=== PATIENT | male | born 1945 | race Caucasian/White ===

== ENCOUNTER 2019-02-01 08:29 | Emergency (ER) | payer MEDICARE ==
[~2019-02-01] VITALS: Ht 167.6 cm; Wt 68.0 kg
[~2019-02-01 08:29] MED LIST: ALPR0.5T72 PO; AMLO5TAB2 PO; ASPI-892 PO; FLUO20CA25 PO; LOVA20TA2 PO; NORT50CA PO; lovaza PO
[2019-02-01 09:22] LABS: BASOPHILS # (AUTO) 0.1 10^3/uL (0.0-0.1); BASOPHILS % (AUTO) 1 % (0-10); EOSINOPHILS # (AUTO) 0.2 10^3/uL (0.0-0.3); EOSINOPHILS % (AUTO) 2 % (0-10); HEMATOCRIT 47 % (40-54); HEMOGLOBIN 16.4 G/DL (13.3-17.7); LYMPHOCYTES # (AUTO) 1.6 X 10^3 (1.0-4.0); LYMPHOCYTES % (AUTO) 20 % (12-44); MEAN CORPUSCULAR HEMOGLOBIN 32 PG (25-34); MEAN CORPUSCULAR HGB CONC 35 G/DL (32-36); MEAN CORPUSCULAR VOLUME 93 FL (80-99); MEAN PLATELET VOLUME 10.6 FL (7.4-10.4); MONOCYTES # (AUTO) 0.9 X 10^3 (0.0-1.0); MONOCYTES % (AUTO) 11 % (0-12); NEUTROPHILS # (AUTO) 5.3 X 10^3 (1.8-7.8); NEUTROPHILS % (AUTO) 66 % (42-75); PLATELET COUNT 184 10^3/uL (130-400); RED CELL DISTRIBUTION WIDTH 12.6 % (10.0-14.5); WHITE BLOOD COUNT 8.1 10^3/uL (4.3-11.0)
[2019-02-01 09:32] LABS: INR 0.9 (0.8-1.4); PROTHROMBIN TIME PATIENT 12.6 SEC (12.2-14.7)
[2019-02-01 09:38] LABS: ALANINE AMINOTRANSFERASE 48 U/L (0-55); ALBUMIN 4.1 GM/DL (3.2-4.5); ALKALINE PHOSPHATASE 63 U/L (40-136); BILIRUBIN,TOTAL 1.3 MG/DL (0.1-1.0); BUN/CREATININE RATIO 19; CARBON DIOXIDE 20 MMOL/L (21-32); CHLORIDE 101 MMOL/L (98-107); CREATINE KINASE 29 U/L (30-200); CREATININE SERUM 0.91 MG/DL (0.60-1.30); GFR ESTIMATED > 60; GLUCOSE 207 MG/DL (70-105); MAGNESIUM 2.3 MG/DL (1.8-2.4); POTASSIUM 4.3 MMOL/L (3.6-5.0); SODIUM 133 MMOL/L (135-145); TOTAL PROTEIN 7.1 GM/DL (6.4-8.2)
[2019-02-01 09:40] LABS: ACETAMINOPHEN < 10 UG/ML (10-30)
[2019-02-01 09:45] LABS: CREATINE KINASE MB 0.6 NG/ML (<6.6)
[2019-02-01] MEDS ORDERED: NS IV 1000 ML 1,000 ML IV ONE (09:52)
--- NOTE | 2019-02-01 09:55 | Diagnostic Imaging Report ---
PROCEDURE: CT head wo r/o stroke. TECHNIQUE: Multiple contiguous axial images were obtained through the brain without the use of intravenous contrast. Auto Exposure Controls were utilized during the CT exam to meet ALARA standards for radiation dose reduction. INDICATION: Right arm weakness. Comparison is made with prior examination from 10/15/12. FINDINGS: There is prominence of the ventricles and sulci. There is some chronic microvascular ischemic disease. There is an unchanged area of encephalomalacia in the left temporal lobe. There is also an unchanged lacunar infarct in the right basal ganglia. There is a new area of decreased attenuation in the anterior left parietal lobe suspect for developing CVA. There is no hydrocephalus. There is no midline shift. There is no intracranial mass, hemorrhage or extra-axial fluid collection. Calvarium is intact. Sinuses and mastoid air cells are clear. IMPRESSION: New area of decreased attenuation in the anterior aspect of the left parietal lobe suspect for subacute CVA. Recommend clinical correlation and if warranted followup with MRI. Atrophy and some chronic microvascular ischemic disease with unchanged encephalomalacia in the left temporal lobe as well as unchanged lacunar infarct in the right basal ganglia Findings conveyed directly to Dr. Brannon in the ER at 9:40 AM Dictated by: Dictated on workstation # [id number]
--- NOTE | 2019-02-01 10:01 | Diagnostic Imaging Report ---
INDICATION: Weakness. COMPARISON: None available. TECHNIQUE: Single frontal radiograph of the chest dated 02/01/2019. FINDINGS: The cardiac silhouette is within normal limits in size. No significant pulmonary vascular congestion. The lungs are clear. No pleural effusion. No pneumothorax. Scattered osseous degenerative changes without acute osseous abnormality. IMPRESSION: No acute cardiopulmonary abnormality. Dictated by: Dictated on workstation # [id number]
--- NOTE | 2019-02-01 10:04 | Diagnostic Imaging Report ---
INDICATION: Arm weakness. FINDINGS: Alignment is normal. There are degenerative changes. There is soft tissue calcification in the region of the cuff suspect for calcific tendinitis. There is no fracture or dislocation. Right lung is clear. IMPRESSION: Degenerative changes of the shoulder without acute fracture or dislocation. Soft tissue calcification in the region of the cuff suspect for calcific tendinitis. Dictated by: Dictated on workstation # [id number]
--- NOTE | 2019-02-01 10:05 | Diagnostic Imaging Report ---
INDICATION: Arm weakness COMPARISON: Imaging of the right shoulder from same date. FINDINGS: Mild degenerative changes of the acromioclavicular joint. No acute fracture or dislocation. No destructive osseous process. Curvilinear calcifications are identified superior to the humeral head. Subacromial space is well maintained. Well-corticated calcific density is identified adjacent to the lateral epicondyle. IMPRESSION: No acute fracture or dislocation. Calcific density superior to the humeral head which may relate to calcific tendinitis of the rotator cuff. 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 Mild scattered degenerative changes. Dictated by: Dictated on workstation # [id number]
--- NOTE | 2019-02-01 11:11 | Diagnostic Imaging Report ---
CLINICAL INDICATION: Patient with right arm weakness and abnormal CT scan. EXAMS: 1: MRI of the brain performed without and with 9 cc of Gadavist IV gadolinium. Sequences include axial gradient echo, axial T2, axial FLAIR, DWI, ADC map, axial T1, axial T1 post IV contrast, coronal T1 fat-sat post IV contrast, sagittal T1 post IV contrast. 2: MRA of the [place] performed without IV contrast using 3D [id number]. Multiple 3-D rotating MIP images were created. COMPARISON: None. MRI BRAIN FINDINGS: There is no evidence of acute cerebral infarct, intracranial hemorrhage, or gross mass effect. There is normal rothman-white matter distinction. There is an area of chronic cerebral infarct involving the posterolateral left frontal lobe/parietal lobe region. There is a small to moderate-sized chronic infarct involving the left temporal lobe with gliosis and encephalomalacia. There is focal, patchy, and confluent areas of high T2 signal white matter changes seen throughout both cerebral hemispheres, periventricular regions, and ingrid. These findings are suspected to represent background chronic small vessel ischemic disease and leukoaraiosis. Parenchymal volume appears appropriate for patient's age. There is no significant midline shift or herniation. The [place] vascular structures show no gross abnormality as visualized. Partially empty sella turcica is seen. There is no evidence of hydrocephalus. The basal cisterns are unremarkable. The skull, extracranial soft tissue, and orbits are unremarkable. There is mild mucosal thickening involving both maxillary sinuses, frontal sinus, and ethmoid sinus. MRA COW FINDINGS: MRA of the [place] shows no significant stenosis, dissection, vascular malformation, or aneurysm seen. The visualized portions of both ICAs are patent. The anterior cerebral arteries and their branches, middle cerebral arteries and their branches are unremarkable. The bilateral metal reed tuner, basilar artery, and vertebral arteries are unremarkable. Dominant left vertebral artery is seen. There is a very small caliber post PICA right vertebral artery. IMPRESSION: 1: There is no evidence of acute cerebral infarction, intracranial hemorrhage, hydrocephalus, or brain herniation. 2: There are chronic cerebral infarcts involving the posterior left frontal/parietal lobe region. 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 4: Unremarkable MRA of the [place] with no evidence of significant stenosis, high-flow vascular malformation, or aneurysm. Dictated by: Dictated on workstation # [id number]
--- NOTE | 2019-02-01 11:27 | Diagnostic Imaging Report ---
CLINICAL INDICATION: Patient with right arm weakness and abnormal CT scan. EXAMS: 1: MRI of the brain performed without and with 9 cc of Gadavist IV gadolinium. Sequences include axial gradient echo, axial T2, axial FLAIR, DWI, ADC map, axial T1, axial T1 post IV contrast, coronal T1 fat-sat post IV contrast, sagittal T1 post IV contrast. 2: MRA of the [place] performed without IV contrast using 3D [id number]. Multiple 3-D rotating MIP images were created. COMPARISON: None. MRI BRAIN FINDINGS: There is no evidence of acute cerebral infarct, intracranial hemorrhage, or gross mass effect. There is normal rothman-white matter distinction. There is an area of chronic cerebral infarct involving the posterolateral left frontal lobe/parietal lobe region. There is a small to moderate-sized chronic infarct involving the left temporal lobe with gliosis and encephalomalacia. There is focal, patchy, and confluent areas of high T2 signal white matter changes seen throughout both cerebral hemispheres, periventricular regions, and ingrid. These findings are suspected to represent background chronic small vessel ischemic disease and leukoaraiosis. Parenchymal volume appears appropriate for patient's age. There is no significant midline shift or herniation. The [place] vascular structures show no gross abnormality as visualized. Partially empty sella turcica is seen. There is no evidence of hydrocephalus. The basal cisterns are unremarkable. The skull, extracranial soft tissue, and orbits are unremarkable. There is mild mucosal thickening involving both maxillary sinuses, frontal sinus, and ethmoid sinus. MRA COW FINDINGS: MRA of the [place] shows no significant stenosis, dissection, vascular malformation, or aneurysm seen. The visualized portions of both ICAs are patent. The anterior cerebral arteries and their branches, middle cerebral arteries and their branches are unremarkable. The bilateral personalized living manager, basilar artery, and vertebral arteries are unremarkable. Dominant left vertebral artery is seen. There is a very small caliber post PICA right vertebral artery. IMPRESSION: 1: There is no evidence of acute cerebral infarction, intracranial hemorrhage, hydrocephalus, or brain herniation. 2: There are chronic cerebral infarcts involving the posterior left frontal/parietal lobe region. 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 4: Unremarkable MRA of the [place] with no evidence of significant stenosis, high-flow vascular malformation, or aneurysm. Dictated by: Dictated on workstation # [id number]
--- NOTE | 2019-02-01 11:42 | ED Neurological Problem ---
General Chief Complaint: Neuro-Stroke Like Symptoms Stated Complaint: ARM WEAKNESS Allergies and Home Medications Allergies Coded Allergies: No Known Drug Allergies (Unverified , 10/14/12) Home Medications Alprazolam 0.5 Mg Tab.rapdis, 0.5 MG PO BID PRN, (Reported) Amlodipine Besylate 5 Mg Tablet, 5 MG PO DAILY, (Reported) Aspirin 81 Mg Tabec, 81 MG PO DAILY, (Reported) Fluoxetine Hcl 20 Mg Capsule, 20 MG PO DAILY, (Reported) Nortriptyline Hcl 50 Mg Capsule, 50 MG PO HS, (Reported) [lovaza] , 1 GM PO DAILY, (Reported) Past Kgwqxdq-Zkytna-Fdhpda Hx Immunizations Up To Date Tetanus Booster (TDap): Unknown PED Vaccines UTD: No Date of Pneumonia Vaccine: Jul 05, 2011 Date of Influenza Vaccine: Aug 05, 2012 Past Medical History Reproductive Disorders: No Depression Physical Exam Vital Signs Capillary Refill : Height, Weight, BMI Height: '" Weight: lbs. oz. kg; BMI Method:Stated Progress/Results/Core Measures Results/Orders Lab Results Laboratory Tests Test 02/01/19 00:00 02/01/19 09:10 02/01/19 11:28 Range/Units White Blood Count 8.1 4.3-11.0 10^3/uL Red Blood Count 5.08 4.35-5.85 10^6/uL Hemoglobin 16.4 13.3-17.7 G/DL Hematocrit 47 40-54 % Mean Corpuscular Volume 93 80-99 FL Mean Corpuscular Hemoglobin 32 25-34 PG Mean Corpuscular Hemoglobin Concent 35 32-36 G/DL Red Cell Distribution Width 12.6 10.0-14.5 % Platelet Count 184 130-400 10^3/uL Mean Platelet Volume 10.6 H 7.4-10.4 FL Neutrophils (%) (Auto) 66 42-75 % Lymphocytes (%) (Auto) 20 12-44 % Monocytes (%) (Auto) 11 0-12 % Eosinophils (%) (Auto) 2 0-10 % Basophils (%) (Auto) 1 0-10 % Neutrophils # (Auto) 5.3 1.8-7.8 X 10^3 Lymphocytes # (Auto) 1.6 1.0-4.0 X 10^3 Monocytes # (Auto) 0.9 0.0-1.0 X 10^3 Eosinophils # (Auto) 0.2 0.0-0.3 10^3/uL Basophils # (Auto) 0.1 0.0-0.1 10^3/uL Prothrombin Time 12.6 12.2-14.7 SEC INR Comment 0.9 0.8-1.4 Activated Partial Thromboplast Time 30 24-35 SEC Sodium Level 133 L 135-145 MMOL/L Potassium Level 4.3 3.6-5.0 MMOL/L Chloride Level 101 98-107 MMOL/L Carbon Dioxide Level 20 L 21-32 MMOL/L Anion Gap 12 5-14 MMOL/L Blood Urea Nitrogen 17 7-18 MG/DL Creatinine 0.91 0.60-1.30 MG/DL Estimat Glomerular Filtration Rate > 60 BUN/Creatinine Ratio 19 Glucose Level 207 H 70-105 MG/DL Calcium Level 10.0 8.5-10.1 MG/DL Corrected Calcium 9.9 8.5-10.1 MG/DL Magnesium Level 2.3 1.8-2.4 MG/DL Total Bilirubin 1.3 H 0.1-1.0 MG/DL Aspartate Amino Transf (AST/SGOT) 33 5-34 U/L Alanine Aminotransferase (ALT/SGPT) 48 0-55 U/L Alkaline Phosphatase 63 40-136 U/L Total Creatine Kinase 29 L 30-200 U/L Creatine Kinase MB 0.6 <6.6 NG/ML Troponin I < 0.028 <0.028 NG/ML Total Protein 7.1 6.4-8.2 GM/DL Albumin 4.1 3.2-4.5 GM/DL Acetaminophen Level < 10 L 10-30 UG/ML Serum Alcohol < 10 <10 MG/DL My Orders Orders - MYRTLE WANG DO Ekg Tracing (02/01/19 09:15) Accucheck Stat ONCE (02/01/19 09:16) Ed Iv/Invasive Line Start (02/01/19 09:16) Monitor-Rhythm Ecg Trace Only (02/01/19 09:16) Ct Head Wo-R/O Stroke (02/01/19 09:16) Chest 1 View, Ap/Pa Only (02/01/19 09:16) Shoulder, Right, 3 Views (02/01/19 09:16) Humerus, Right, 2 Views (02/01/19 09:16) Acetaminophen (02/01/19 09:16) Alcohol (02/01/19 09:16) Cbc With Automated Diff (02/01/19 09:16) Comprehensive Metabolic Panel (02/01/19 09:16) Creatine Kinase (02/01/19 09:16) Creatine Kinase Mb (02/01/19 09:16) Magnesium (02/01/19 09:16) Protime With Inr (02/01/19 09:16) Partial Thromboplastin Time (02/01/19 09:16) Troponin I (02/01/19 09:16) Ua Culture If Indicated (02/01/19 09:16) Drug Screen Stat (Urine) (02/01/19 09:19) Ed Iv/Invasive Line Start (02/01/19 09:52) Ns Iv 1000 Ml (Sodium Chloride 0.9%) (02/01/19 09:52) Mra Head W/O Contrast (02/01/19 09:56) Mri Brain W/O Contrast (02/01/19 ) Medications Given in ED Current Medications Medications Dose Ordered Sig/Anita Route Start Time Stop Time Status Last Admin Dose Admin Sodium Chloride 1,000 ml @ 0 mls/hr Q0M ONCE IV 02/01/19 09:52 02/01/19 10:03 DC 02/01/19 10:13 1,000 MLS/HR Departure Impression Primary Impression: TIA (transient ischemic attack) Additional Impressions: Diabetes HTN (hypertension) Disposition: 01 HOME, SELF-CARE Condition: Stable Departure-Patient Inst. Referrals: NO,LOCAL PHYSICIAN (PCP/Family) Primary Care Physician Patient Instructions: Transient Ischemic Attack (DC), High Blood Pressure (DC) , DASH Diet, Diabetes Type 2 (DC), Blood Glucose Monitoring, Diabetes Diet Add. Discharge Instructions: TAKE YOUR MEDICATIONS PRESCRIBED NO ALCOHOL NO DRIVING UNTIL YOU ARE CLEARED BY YOUR DR FOLLOW UP WITH DR. MURPHY OR DR MALONE THIS WEEK FOR FURTHER CARE All discharge instructions reviewed with patient and/or family. Voiced understanding. MYRTLE WANG DO Feb 01, 2019 11:42
[2019-02-01 11:43] LABS: BILIRUBIN,URINE NEGATIVE (NEGATIVE); CLARITY,URINE SLIGHTLY CLOUDY; COLOR,URINE YELLOW; GLUCOSE, URINE (UA) 2+ (NEGATIVE); KETONES,URINE 1+ (NEGATIVE); LEUKOCYTE ESTERASE ,URINE NEGATIVE (NEGATIVE); NITRITE,URINE NEGATIVE (NEGATIVE); PH,URINE 5 (5-9); PROTEIN,URINE NEGATIVE (NEGATIVE); UROBILINOGEN,URINE NORMAL (NORMAL)
[2019-02-01 11:50] LABS: AMPHETAMINE SCREEN, URINE NEGATIVE (NEGATIVE); BARBITURATE SCREEN URINE NEGATIVE (NEGATIVE); BENZODIAZEPINES SCREEN URINE NEGATIVE (NEGATIVE); CANNABINOID SCREEN, URINE NEGATIVE (NEGATIVE); COCAINE SCREEN URINE NEGATIVE (NEGATIVE); METHADONE STAT NEGATIVE (NEGATIVE); METHAMPHETAMINE SCREEN URINE S NEGATIVE (NEGATIVE); OPIATE SCREEN URINE NEGATIVE (NEGATIVE); OXYCODONE STAT NEGATIVE (NEGATIVE); PROPOXYPHENE STAT NEGATIVE (NEGATIVE); TRICYCLIC ANTIDEPRESSANTS SCRE POSITIVE (NEGATIVE)
[2019-02-01 12:00] VITALS: BP 153/79
--- NOTE | 2019-02-01 13:57 | NUR ---
Credit Support Counselor offered active listening and compassionate presence. When told he needed to make an appointment for followup with his PCP, the pt said "I'm just going to tell my doctor that when it's my time to go and just want to say 'goodbye.' Pt verbalized understanding of life altering outcomes with stroke. He also said that the state of the world according to media broadcasting in conjunction with diminished quality of life gives him a sense of peace and resolve that when he dies he will feel ready.
== END 2019-02-01 12:05 | disposition home or self-care (01) ==
LOC: EDUNIT# 08:29 → ER 08:30
DX: G45.9 Transient cerebral ischemic attack, unspecified (principal); E11.9 Type 2 diabetes mellitus without complications; I10 Essential (primary) hypertension; F32.9 Major depressive disorder, single episode, unspecified; Z79.82 Long term (current) use of aspirin
CPT/HCPCS: 36415; 70450; 70544; 70551; 71045; 73030; 73060; 80053; 80306; 80320; 80329; 81002; 82550; 82553; 83735; 84484; 85025; 85610; 85730; 93005; 93041; 96360